=== PATIENT | female | born 1950 | race Caucasian/White ===

== ENCOUNTER 2016-10-02 05:13 | Observation (INO) | payer MEDICARE, BC ==
[2016-10-01 11:10] LABS: HEMATOCRIT 42.7 % (36.0-48.0); HEMOGLOBIN 14.5 g/dL (12-16); MCH 33.3 pg (26.0-34.0); MCV 97.9 fL (80.0-100.0); MEAN PLATELET VOLUME 10.7 fL (7.4-10.4); RBC 4.36 10x6/uL (4.00-5.40); RDW 12.2 % (11.5-14.5); WBC 4.2 10x3/uL (4.8-10.8)
[~2016-10-02] VITALS: Ht 157.5 cm; Wt 46.3 kg
[~2016-10-02 05:13] MED LIST: AZELASTINE137 MCG/0. NASAL; FLUTICASONE PRO16 GM NASAL; PEPCID20 MG PO; PROAIR HFA8.5 GM INH; TRAZODONE HCL150 MG PO
[2016-10-02] MEDS ORDERED: PULMICORT180 MCG/AE INH (06:38)
[2016-10-02 06:41] VITALS: BP 108/63; BMI 18.7
--- NOTE | 2016-10-02 12:40 | NUR ---
1235--PT DENIES PASSING AIR, PT REPOSITIONED TO LEFT SIDE WITH KNEES UP TO CHEST. WILL CONTINUE TO MONITOR. AVIVA RN
--- NOTE | 2016-10-02 14:05 | NUR ---
1405--PT UNABLE TO PASS GAS, REPORTS PAIN IN RIGHT RIB AREA. PT UP TO THE BATHROOM. HGRAVES RN
--- NOTE | 2016-10-02 15:27 | NUR ---
1415--DR MENDEZ PAGED. AVIVA FLORES 1445--NO CALL BACK FROM PREVIOUS PAGE TO DR MENDEZ. PAGED A SECOND TIME. AVIVA FLORES 2162--DR MENDEZ RETURNS CALL, REPORT GIVEN OF PT'S DISCOMFORT AND INABILITY TO PASS AIR. DR MENDEZ ON HIS WAY TO ASSESS PT. AVIVA FLORES
[2016-10-02 16:26] LABS: BASOPHILS 0.8 % (0.0-2.0); EOSINOPHILS 2.5 % (0-7); HEMATOCRIT 42.8 % (36.0-48.0); LYMPHOCYTES 42.1 % (15-50); MCH 32.6 pg (26.0-34.0); MCHC 32.7 g/dL (31.0-37.0); MCV 99.8 fL (80.0-100.0); MEAN PLATELET VOLUME 11.7 fL (7.4-10.4); MONOCYTES 11.1 % (2-11); NEUTROPHILS 43.5 % (40-80); PLATELET COUNT 195 10x3/uL (130-400); RBC 4.29 10x6/uL (4.00-5.40); RDW 12.5 % (11.5-14.5); WBC 3.6 10x3/uL (4.8-10.8)
--- NOTE | 2016-10-02 16:33 | NUR ---
1535--DR. MENDEZ AT BEDSIDE, EXAMINES STOMACH WITH DIGITAL STIMULATION WITH NO RESULTS, ORDER RECIEVED TO GIVE SIMETHICON. AVIVA RN
--- NOTE | 2016-10-02 16:36 | NUR ---
1609--GAS X GIVEN PO. DR TAN IN ROOM, REPORT GIVEN OF PT'S STATUS, DR TAN EXAMINES PT'S STOMACH WITH DIGITAL STIMULATION WITH VERY SMALL RESULTS. NEW ORDERS RECIEVED. AVIVA RN
[2016-10-02 16:48] LABS: ALBUMIN 3.9 g/dL (3.4-5.0); ALKALINE PHOSPHATASE 59 U/L (46-116); ALT (SGPT) 27 U/L (10-68); BILIRUBIN - TOTAL 0.48 mg/dL (0.2-1.3); CALC OSMOLALITY 281 mosm/kg (275-300); CARBON DIOXIDE 24.5 mmol/L (21.0-32.0); CHLORIDE - SERUM 103 mmol/L (98-107); CREATININE - SERUM 0.8 mg/dL (0.6-1.3); GLUCOSE 95 mg/dL (74-106); POTASSIUM - SERUM 3.9 mmol/L (3.5-5.1); PROTEIN - SERUM 6.8 g/dL (6.4-8.2); SODIUM 142 mmol/L (136-145); UREA NITROGEN 11 mg/dL (7-18); eGFR NON AFRICAN AMERICAN 75 mL/min (90-120)
--- NOTE | 2016-10-02 17:18 | NUR ---
LATE ENTRY 1600--DR COLBY'S OFFICE CALLS WITH INSTRUCTIONS TO GIVE TO PT FOR RETURN FOR ERCP. AVIVA RN
--- NOTE | 2016-10-02 17:20 | NUR ---
1715--REPORT CALLED TO ANGEL MOORE RN. AVIVA FLORES
--- NOTE | 2016-10-02 17:56 | NUR ---
1755 TRANSFERRED TO ROOM 2222 VIA STRETCHER WITH ALL BELONGINGS REPORT AND PATIENT WAS TAKEN CARE OF BY TAL TARANGO R.N.
--- NOTE | 2016-10-02 18:00 | NUR ---
RECD TO ROOM 2222 VIA BED FROM RR COLOR ADQ AT BEDSIDE IV CONT TO LW AT PRESENT,
[2016-10-02 19:31] VITALS: BP 112/66; BMI 18.7
[2016-10-02 20:00] VITALS: BP 124/69
--- NOTE | 2016-10-02 20:00 | NUR ---
ASSESSMENT PER FLOWSHEET. IV PATENT LEFT WRIST OF D5LR AT 75CC'S/HR SITE CLEAR. SR UP X2 CALL LIGHT WITHIN REACH. SPOUSE AT BEDSIDE. DENIES NEEDS.
--- NOTE | 2016-10-02 21:52 | NUR ---
REQUESTING SLEEPING MED AND PAIN PILL. RATES PAIN LEVEL #5 ABDOMEN. DESERYL 75MG PO GIVEN FOR SLEEP. NORCO 5 TAB ONE GIVEN FOR PAIN CONTROL.
[2016-10-03] VITALS: BP 101/56
--- NOTE | 2016-10-03 | NUR ---
EYES CLOSED RESPIRATIONS WITH EASE AND UNLABORED.
--- NOTE | 2016-10-03 02:07 | NUR ---
C/O INCISIONAL/ABDOMINAL PAIN RATES PAIN LEVEL #8. ABDOMEN DISTENDED AND SOFT WITH 3 LARGE BANDAIDES NOTED C/D/I TO LAP SITES.NORCO TAB ONE PO GIVEN FOR PAIN CONTROL.
[2016-10-03 04:00] VITALS: BP 96/50
--- NOTE | 2016-10-03 04:30 | NUR ---
EYES CLOSED RESPIRATIONS WITH EASE AND UNLABORED.
[2016-10-03 05:27] LABS: BASOPHILS 0.1 % (0.0-2.0); EOSINOPHILS 0.1 % (0-7); HEMATOCRIT 37.9 % (36.0-48.0); HEMOGLOBIN 12.6 g/dL (12-16); IMMATURE GRANULOCYTES 0.1 % (0-5); LYMPHOCYTES 14.4 % (15-50); MCH 32.2 pg (26.0-34.0); MCHC 33.2 g/dL (31.0-37.0); MEAN PLATELET VOLUME 10.9 fL (7.4-10.4); MONOCYTES 9.5 % (2-11); NEUTROPHILS 75.8 % (40-80); PLATELET COUNT 167 10x3/uL (130-400); RBC 3.91 10x6/uL (4.00-5.40)
[2016-10-03 05:31] LABS: MCV 96.9 fL (80.0-100.0); WBC 7.7 10x3/uL (4.8-10.8)
[2016-10-03 05:47] LABS: ALKALINE PHOSPHATASE 47 U/L (46-116); BILIRUBIN - TOTAL 0.38 mg/dL (0.2-1.3); CARBON DIOXIDE 29.2 mmol/L (21.0-32.0); CHLORIDE - SERUM 107 mmol/L (98-107); CREATININE - SERUM 0.8 mg/dL (0.6-1.3); GLUCOSE 120 mg/dL (74-106); PROTEIN - SERUM 5.8 g/dL (6.4-8.2); SODIUM 142 mmol/L (136-145); eGFR NON AFRICAN AMERICAN 75 mL/min (90-120)
[2016-10-03 05:51] LABS: ALT (SGPT) 78 U/L (10-68); CALC OSMOLALITY 281 mosm/kg (275-300); UREA NITROGEN 8 mg/dL (7-18)
--- NOTE | 2016-10-03 06:21 | NUR ---
PORTABLE KUB DONE IN ROOM. NO CHANGES IN ASSESSMENT. RESTING QUIETLY.
--- NOTE | 2016-10-03 07:00 | NUR ---
REPORT RECIEVED ASSUMED CARE. PATIENT IN BED WITH IV INTACT. NO COMPLAINTS. BANDAIDS TO ABDOMEN CLEAN AND DRY,. SMALL AMOUNT OF REDNESS AROUND UMBILICAL DRESSING. CALL LIGHT WITHIN REACH.
[2016-10-03 08:30] VITALS: BP 97/46
[2016-10-03 10:59] VITALS: Ht 157.5 cm; Wt 46.3 kg
--- NOTE | 2016-10-03 11:30 | NUR ---
PATIENT UP AMBULATING IN LOVE WITH FAMILY.
[2016-10-03 12:28] VITALS: BP 90/54
--- NOTE | 2016-10-03 14:45 | NUR ---
PATIENT RECIEVED DISCHARGE INSTRUCTIONS AND PRESCRIPTION. VERBALIZED UNDERSTANDING. IV REMOVED WITH CATH TIP INTACT. NO QUESTIONS AT THIS TIME. AWAITING FOR DISCHARGE.
--- NOTE | 2016-11-01 09:40 | HP ---
PATIENT: EVELIN GARCIA MEDICAL RECORD: [id number] ACCOUNT: [id number] LOCATION:D.MS [facility]2222 : 46 ADMISSION DATE: 10/02/16 HISTORY AND PHYSICAL EXAMINATION She has a history and physical on the chart. Her history and physical examination is unchanged from her visit in the office. She has two separate problems. Biliary dyskinesia. Also, a large somewhat pedunculated colon polyp. I am going to plan for laparoscopic cholecystectomy, intraoperative cholangiography, and possible liver biopsy as well as a polypectomy, likely utilizing the argon plasma pet adoption counselor. TRANSINT:[id number] Voice Confirmation ID: [id number] DOCUMENT ID: [id number] DONNA MENDEZ MD at 0940 CC: [id number] DICTATION DATE: 10/02/16 1057 LPN INSTRUCTOR: 10/02/16 1126 [facility] IN 10/03/16 [place] [id number] [place] [address]
--- NOTE | 2016-11-01 09:40 | OP ---
PATIENT NAME: EVELIN GARCIA MEDICAL RECORD: [id number] :48 LOCATION:D.MS [facility]aud[facility] ADMISSION DATE:10/02/16 SURGEON: DONNA MENDEZ MD DATE OF OPERATION: 10/02/2016 PREOPERATIVE DIAGNOSES: 1. Biliary dyskinesia. 2. A large polyp in the proximal transverse colon, 4 mm, semi-pedunculated. POSTOPERATIVE DIAGNOSES: 1. Biliary dyskinesia. 2. A large polyp in the proximal transverse colon, 4 mm, semi-pedunculated. 3. Hepatomegaly. 4. Stricturing at the distal aspect of the . I have personally discussed the x-ray images with Dr. Frederick Sunshine, who was the reading radiologist. He agreed that the stricture was nonobstructive. The pancreatic duct looked normal. There had been some extravasation of contrast material in Morison's pouch. I told him that this was a clinical observation as well. After general anesethesia was induced by the anesthesia staff, an incision was accomplished within the umbilicus. I dissected down to a small umbilical hernia. I then sharply cleaned the surrounding connective tissue from the umbilical hernia defect. A 12-mm trocar was placed here. A 5-mm trocar was placed through an incision in the epigastrium. Another 5-mm trocar was placed through an incision far laterally in the right upper quadrant. Another 5-mm trocar was placed in the right upper quadrant. During insertion of the Veress needle and all trocars, there appeared to have been no injury to the bowels, any intraperitoneal or retroperitoneal structures. An abdominal survey was undertaken. The indication for liver biopsy was hepatomegaly. Under laparoscopic guidance, I percutaneously accessed the right upper quadrant utilizing an 18-gauge core needle liver biopsy device. Cores were obtained over the convexity of the liver. The biopsy sites were made hemostatic with electrocautery. The gallbladder was grasped and retracted anteriorly. I advanced the cholangiogram trocar. I punctured the fundus of the gallbladder. I aspirated bile. I then injected dye. Under real time fluoroscopy, static images were obtained. The cholangiogram trocar was removed. Blunt dissection was begun on the triangle of Calot. One cystic artery and 1 cystic duct were identified. These were clipped multiply and divided between clips. The gallbladder was excised from its bed in the liver. The umbilical fascia was closed with a [id number] 0 Vicryl suture. The skin at the umbilicus was closed with interrupted 4-0 Vicryl Rapide sutures. The other skin incisions were closed with interrupted 3-0 Vicryls. Benzoin and Steri-Strips were applied. The patient was then placed in a Mclean position. A digital rectal examination was performed. A colonoscope was inserted through the anus. It was easily advanced to the cecum. Upon withdrawal, I irrigated and aspirated extensively. The prep was adequate. I identified the polyp. I advanced a sclerotherapy OPERATIVE REPORT [id number] EVELIN GARCIA needle. I injected epinephrine at the base of the polyp. A total of 9 cc epinephrine were used to inject the submucosal tissues at the base of the polyp. Utilizing a snare polypectomy, a piecemeal polypectomy technique was performed in order to remove the polyp. Portions of the polyp were removed with an endoscopic bags. Some hot biopsy forceps were performed at the base of the polyp. I then ablated the remaining base of the polyp with the argon plasma immigration manager. There was no evidence of bleeding. No evidence of perforation. It appears that the polyp was removed in its entirety. Some of the polyp was suctioned up in the polyp trap. The endoscope was withdrawn under direct vision. I will see the patient in my office in 2-3 weeks. I will plan for the next colonoscopy to take place in 1 year with the argon plasma immigration manager. I am going to set the patient up for an outpatient visit with Dr. Sinclair. I have discussed her condition with Dr. Sinclair by phone. TRANSINT:[id number] Voice Confirmation ID: [id number] DOCUMENT ID: [id number] DONNA MENDEZ MD at 0940 CC: GRACIELA GALARZA and AMITA TAN MD [id number] DICTATION DATE: 10/02/16 1045 FIBERGLASS ROLLER: 10/02/16 1250 DIS IN 10/03/16 [place] [id number] [place] [id number]
== END 2016-10-03 15:35 | disposition home or self-care (01) ==
LOC: D.OPS 05:13 → D.PAN 08:00 → D.MS 17:55 → D.OPS 17:56 → OBSVTIME 17:56 → D.MS 17:56
PROVIDERS: Anesthesiology; Internal Medicine Gastroenterology; ADMIT Surgery
DX: K82.8 Other specified diseases of gallbladder (principal); D12.3 Benign neoplasm of transverse colon; J45.909 Unspecified asthma, uncomplicated; K21.9 Gastro-esophageal reflux disease without esophagitis; E16.2 Hypoglycemia, unspecified; K91.3 Postprocedural intestinal obstruction; R16.0 Hepatomegaly, not elsewhere classified

== ENCOUNTER 2016-10-14 10:43 | Day surgery (SDC) | payer MEDICARE, BC ==
[~2016-10-14] VITALS: Ht 157.5 cm; Wt 45.5 kg
[~2016-10-14 10:43] MED LIST changes: +PULMICORT180 MCG/AE INH
[2016-10-14 11:46] LABS: BASOPHILS 0.2 % (0.0-2.0); EOSINOPHILS 5.5 % (0-7); HEMATOCRIT 39.7 % (36.0-48.0); HEMOGLOBIN 13.3 g/dL (12-16); MCH 32.4 pg (26.0-34.0); MCHC 33.5 g/dL (31.0-37.0); MCV 96.6 fL (80.0-100.0); MEAN PLATELET VOLUME 10.1 fL (7.4-10.4); MONOCYTES 10.1 % (2-11); NEUTROPHILS 64.2 % (40-80); RBC 4.11 10x6/uL (4.00-5.40); RDW 12.4 % (11.5-14.5); WBC 4.8 10x3/uL (4.8-10.8)
[2016-10-14 11:54] LABS: PLATELET COUNT 211 10x3/uL (130-400)
[2016-10-14 12:08] LABS: CALC OSMOLALITY 279 mosm/kg (275-300); CALCIUM 8.8 mg/dL (8.5-10.1); CARBON DIOXIDE 29.6 mmol/L (21.0-32.0); CHLORIDE - SERUM 103 mmol/L (98-107); CREATININE - SERUM 0.7 mg/dL (0.6-1.3); GLUCOSE 99 mg/dL (74-106); SODIUM 140 mmol/L (136-145); UREA NITROGEN 16 mg/dL (7-18); eGFR NON AFRICAN AMERICAN 88 mL/min (90-120)
[2016-10-14 13:37] VITALS: BP 97/56; Ht 157.5 cm; Wt 45.5 kg
--- NOTE | 2016-10-29 12:04 | OP ---
PATIENT NAME: EVELIN GARCIA MEDICAL RECORD: [id number] :48 LOCATION:D.OPS ADMISSION DATE: SURGEON: CLEMENTE PALOMINO DO DATE OF OPERATION: 10/14/2016 PROCEDURE: ERCP. INDICATION: Biliary stricture noted on recent cholecystectomy on intraoperative cholangiogram by Dr. Jaime. ENDOSCOPIST: Clemente Palomino DO. SCOPE: Olympus video duodenoscope. MEDICATIONS: Propofol 500 mg IV and glucagon 1 mg IV per anesthesia. FINDINGS: Informed consent was given. The patient was made comfortable with the above medications. After reaching an adequate level of sedation by slow IV push and once the patient was in appropriate position, the side-viewing duodenoscope was placed through the mouth under direct visualization and advanced to the second portion of the duodenum where the ampulla was located. When inspecting the ampulla, there was no obvious orifice. Washing of the ampulla was performed with saline. Upon further inspection, there appeared to be a diminutive opening where some bile was seen to be extruding. Cannulation was attempted for approximately 45 minutes with both the catheter as well as the guidewire itself. Neither device would feed freely up the bile duct. At one point, it was felt that the catheter was within the orifice opening. Although it would not pass, a cholangiogram was attempted to see if this could guide further placement and advancement of the catheter. It appears that possibly both the bile duct and pancreatic duct could start to be visualized, but contrast was not pushed further as the definitive placement was not confirmed. This could be related to the stricture that we know is located approximately 1 cm behind the ampulla, but this is not confirmed. No needle knife was available for further assistance with common bile duct cannulation. After 45 minutes, the procedure was terminated and the catheter and the scope was withdrawn from the patient. IMPRESSION: 1. Biliary stricture. 2. Incomplete ERCP. PLAN AND RECOMMENDATIONS: I have discussed with the patient the failed procedure and we will discuss this further with her and her to determine the course of action that they would like to proceed with. I will offer a repeat ERCP once needle knife is available as a backup for further evaluation if they wish to proceed this way. Otherwise, I will offer referral to another endoscopist for an attempt to cannulation and evaluation of the stricture. TRANSINT:[id number] Voice Confirmation ID: [id number] DOCUMENT ID: [id number] OPERATIVE REPORT [id number] EVELIN GARCIA NATHAN A DO at 1204 CC: [id number] DICTATION DATE: 10/14/16 1547 DIGITAL FIELD SERVICE TECHNICIAN: 10/14/16 2229 [facility] 10/14/16 [place] [id number] [place] [id number]
== END 2016-10-14 17:15 | disposition home or self-care (01) ==
LOC: D.OPS 10:43
PROVIDERS: Anesthesiology
DX: K83.1 Obstruction of bile duct (principal)

== ENCOUNTER 2016-12-16 10:05 | Day surgery (SDC) | payer MEDICARE, BC ==
[~2016-12-16] VITALS: Ht 157.5 cm; Wt 45.9 kg
[2016-12-16 12:57] LABS: INR 1.16 (0.85-1.17); PROTIME 14.7 SECONDS (11.6-15.0)
[2016-12-16 12:58] LABS: APTT 37.1 SECONDS (22.8-39.4)
[2016-12-16 13:00] LABS: ALBUMIN 3.4 g/dL (3.4-5.0); ALKALINE PHOSPHATASE 64 U/L (46-116); ALT (SGPT) 29 U/L (10-68); BILIRUBIN - TOTAL 0.51 mg/dL (0.2-1.3); CALC OSMOLALITY 279 mosm/kg (275-300); CALCIUM 8.7 mg/dL (8.5-10.1); CHLORIDE - SERUM 105 mmol/L (98-107); CREATININE - SERUM 0.6 mg/dL (0.6-1.3); GLUCOSE 91 mg/dL (74-106); POTASSIUM - SERUM 4.5 mmol/L (3.5-5.1); PROTEIN - SERUM 6.5 g/dL (6.4-8.2); SODIUM 140 mmol/L (136-145); UREA NITROGEN 16 mg/dL (7-18); eGFR NON AFRICAN AMERICAN > 90 mL/min (90-120)
[2016-12-16 13:11] VITALS: BP 110/68; Ht 157.5 cm; Wt 45.9 kg
[2016-12-16 13:16] LABS: BASOPHILS 0.3 % (0-2); EOSINOPHILS 2.4 % (0-7); HEMATOCRIT 40.5 % (36.0-48.0); HEMOGLOBIN 13.7 g/dL (12-16); IMMATURE GRANULOCYTES 0.3 % (0-5); LYMPHOCYTES 35.4 % (15-50); MCH 32.9 pg (26.0-34.0); MCHC 33.8 g/dL (31.0-37.0); MCV 97.1 fL (80.0-100.0); MEAN PLATELET VOLUME 11.1 fL (7.4-10.4); MONOCYTES 11.9 % (2-11); NEUTROPHILS 49.7 % (40-80); PLATELET COUNT 132 10x3/uL (130-400); RBC 4.17 10x6/uL (4.00-5.40); WBC 3.8 10x3/uL (4.8-10.8)
--- NOTE | 2016-12-16 17:55 | NUR ---
PATIENT MORE AWAKE, WHEN ASKED, COMPLAINS OF SEVERE NAUSEA, HAS HAD NO PO INTAKE, ABDOMEN IS SOFT, FLAT, NONTENDER, BOWEL SOUNDS ACTIVE. PAGED ELIAN SONG CRNA, CALL BACK RECEIVED WITH ORDERS
--- NOTE | 2016-12-16 18:50 | NUR ---
PATIENT CONTINUES TO BE VERY NAUSEATED, NO PO INTAKE, DR TAN VICE CHAIRMAN FOR DR EARNESTINE ACUÑA. PATIENT SITTING IN CHAIR IN ROOM, ABDOMEN SOFT, NONTENDER, FLAT, BOWEL SOUNDS ACTIVE
--- NOTE | 2016-12-16 19:40 | NUR ---
PATIENT REPORTS FEELING MUCH BETTER, STATES NAUSEA IS GONE, IS EATING ICE CHIPS AND HAS EATEN HALF OF 8 OZ CUP OF ICE CHIPS. WANTS TO GO HOME. RIGHT HAND PIV DC'D WITH TIP INTACT. PATIENT DRESSING IN PERSONAL CLOTHING
--- NOTE | 2016-12-16 19:50 | NUR ---
DISCHARGED HOME VIA WHEELCHAIR TO PRIVATE VEHICLE WITH SPOUSE
--- NOTE | 2016-12-18 07:42 | OP ---
PATIENT NAME: EVELIN GARCIA MEDICAL RECORD: [id number] :46 LOCATION:D.OPS ADMISSION DATE: SURGEON: CLEMENTE COLBY DO DATE OF OPERATION: 12/16/2016 PROCEDURE: ERCP with sphincterotomy and balloon dilation of a stricture. INDICATIONS: Abnormal imaging of bile ducts. MEDICATIONS: General anesthesia, provided by anesthesia as well as prophylactic antibiotics of clindamycin and gentamicin. SCOPE: Olympus video side-viewing duodenoscope. ESTIMATED BLOOD LOSS: Minimal. COMPLICATIONS: None. FINDINGS: Informed consent was given. The patient was sedated and intubated per anesthesia and placed in a prone position. After timeout was performed, the endoscope was advanced under direct visualization through the mouth to the second portion of the duodenum where the ampulla was identified. As previously encountered, the ampullary orifice was extremely stenotic. A precut sphincterotomy was performed using a needle knife. After a small incision was made, a sphincterotome was passed back over the guidewire and deep biliary cannulation was achieved with ease. Initial cholangiogram showed very poor filling of the distal bile duct. An 8-1/2 diameter sweeping balloon was placed in the duct with a few sweeps being performed. The balloon easily passed through the distal bile duct without difficulty. A balloon occlusion cholangiogram was performed and again revealed that there may be a slight narrowing in the distal common bile duct consistent with stenosis or stricture. A [employer] 6 x 4 cm dilating balloon was placed over the guidewire into the stricture and inflated to a maximum diameter of 6 mm. There was an initial waste visualized around the balloon, which was obliterated with the dilation. After this, cytology brush was used to brush the distal duct where the stricture was located. This will be submitted for histology. A couple more balloon sweeps were performed and the balloon again had no difficulty passing through the duct. At the conclusion of the procedure, the duct was completely empty of contrast. The scope was withdrawn from the patient. The patient tolerated the procedure well and there were no complications. IMPRESSION: Distal common bile duct stricture which is felt to be benign, but of unknown etiology, status post dilation, sphincterotomy and cytology brushings. PLAN AND RECOMMENDATIONS: 1. Discharge home when recovery parameters are met. 2. Continue current diet. 3. Continue current medications. 4. Will order MRI abdomen with MRCP to evaluate the pancreas and the bile duct further. Of note, the patient has never had any abnormal liver enzymes or symptoms including jaundice or icterus. She has no abdominal pain and this was a stricture initially found on a laparoscopic intraoperative cholangiogram during the cholecystectomy on October 02. OPERATIVE REPORT [id number] EVELIN GARCIA TRANSINT:[id number] Voice Confirmation ID: [id number] DOCUMENT ID: [id number] CLEMENTE COLBY DO at 0742 CC: [id number] DICTATION DATE: 12/16/161553 MAKE READY MECHANIC: 12/16/16 2345 [facility] 12/16/16 [facility] [address] [place] [address]
== END 2016-12-16 19:50 | disposition home or self-care (01) ==
LOC: D.OPS 10:05
PROVIDERS: Anesthesiology
DX: K83.1 Obstruction of bile duct (principal); Z01.812 Encounter for preprocedural laboratory examination

== ENCOUNTER 2017-10-10 07:51 | Day surgery (SDC) | payer MEDICARE, BC ==
[~2017-10-10] VITALS: Ht 157.5 cm; Wt 46.7 kg
--- NOTE | ~2017-10-10 | OP ---
PATIENT NAME: EVELIN GARCIA MEDICAL RECORD: [id number] :46 LOCATION:D.OPS ADMISSION DATE: SURGEON: DONNA MENDEZ MD DATE OF OPERATION: 10/10/2017 PREOPERATIVE DIAGNOSIS: History of complex polyp of the transverse colon which was tattooed. POSTOPERATIVE DIAGNOSES: History of complex polyp of the transverse colon which was tattooed with no regrowth of the polyp. There was a new pedunculated polyp of the transverse colon which was removed utilizing the hot biopsy forceps polypectomy technique. Also, an 8 mm sessile polyp of the distal rectum, which was removed utilizing the hot biopsy forceps polypectomy technique. PROCEDURES: 1. Total colonoscopy to cecum. 2. Hot biopsy forceps polypectomies times 2. SURGEON: Donna Mendez MD GLASS INSTALLER: None. BLOOD LOSS: Minimal. ANESTHESIA: General. COMPLICATIONS: None. ENDOSCOPIC COURSE: The patient was conveyed to the operating room electively on 10/10/2017. General anesthesia was induced by the anesthesia staff. The patient was placed in the Mclean position. A digital rectal examination was performed. A colonoscope was inserted through the anus. It was easily advanced to the cecum. Following withdrawal, I irrigated and aspirated extensively. I dragged the folds. The tattoo was easily identified. I noted no regrowth of the polyp and the tattoo. I utilized normal imaging as well as narrow band imaging. I identified another pedunculated polyp of the transverse colon. This was a 1 cm polyp. This was removed utilizing the hot biopsy forceps polypectomy technique. I then continued to withdraw the colonoscope. I dragged the folds. The pullback was greater than an 18-minute pullback. A retroflexed view was obtained in the rectum. I then unretroflexed the scope and removed it under direct vision. I will see the patient in my office in 2-3 weeks. It is very likely I will return the patient's endoscopic care back over to Dr. Kang for surveillance colonoscopies in the future. TRANSINT:[id number] Voice Confirmation ID: [id number] DOCUMENT ID: [id number] OPERATIVE REPORT [id number] EVELIN GARCIA DONNA MENDEZ MD at 1066 CC: JC KANG MD and AMITA TAN [id number] DICTATION DATE: 10/10/17 1045 TYPER: 10/10/17 1107 [facility] 10/10/17 [place] [id number] [place] [id number]
[2017-10-10 08:52] VITALS: BP 106/62; Ht 157.5 cm; Wt 46.7 kg
[2017-10-10 08:55] LABS: HEMATOCRIT 40.6 % (36.0-48.0); HEMOGLOBIN 13.9 g/dL (12-16); MCH 33.2 pg (26.0-34.0); MCHC 34.2 g/dL (31.0-37.0); MCV 96.9 fL (80.0-100.0); MEAN PLATELET VOLUME 10.2 fL (7.4-10.4); RBC 4.19 10x6/uL (4.00-5.40); RDW 12.2 % (11.5-14.5); WBC 3.4 10x3/uL (4.8-10.8)
== END 2017-10-10 11:54 | disposition home or self-care (01) ==
LOC: D.OPS 07:51 → D.PAN 08:00 → D.OPS 08:00 → D.PAN 09:00 → D.OPS 09:45
PROVIDERS: Anesthesiology
DX: K63.5 Polyp of colon (principal); Z01.812 Encounter for preprocedural laboratory examination; K83.1 Obstruction of bile duct